=== PATIENT | female | born 1985 | race Caucasian/White ===

== ENCOUNTER 2020-04-07 17:22 | Outpatient (REF) | payer OTHER, SELFPAY | END 2020-04-07 17:23 | disposition home or self-care (01) | LOC: HO.LAB 17:22 | PROVIDERS: Visit Provider Internal Medicine | DX: Z20.828 Contact with and (suspected) exposure to other viral communicable diseases (principal) | CPT/HCPCS: 87635 ==

== ENCOUNTER 2020-05-06 16:19 | Outpatient (REF) | payer OTHER, SELFPAY | END 2020-05-06 16:20 | disposition home or self-care (01) | LOC: HO.LAB 16:19 | PROVIDERS: PCP Physician Assistant; Visit Provider Internal Medicine | DX: Z20.828 Contact with and (suspected) exposure to other viral communicable diseases (principal) | CPT/HCPCS: C9803; U0003 ==

== ENCOUNTER 2020-11-12 07:27 | Outpatient (REF) | payer OTHER, SELFPAY ==
[2020-11-12 07:59] LABS: Hematocrit 37.6 % (37-47); Mean Corpuscular HGB Conc 31.9 g/dl (31.0-35.0); Mean Corpuscular Hemoglobin 28.2 pg (27.0-33.0); Mean Corpuscular Volume 88.3 fL (80-98); Mean Platelet Volume 9.3 fL (9.4-12.3); Platelet Count 306 X10*3/uL (160-400); Red Blood Count 4.26 X10*6/uL (4.20-5.50); Red Cell Distribution Width 13.3 % (11.0-16.0); White Blood Count 8.2 X10*3/uL (4.8-10.8)
[2020-11-12 08:26] LABS: Estimated Average Glucose 108 mg/dL; Hemoglobin A1c % 5.4 %
[2020-11-12 08:30] LABS: Alanine Aminotransferase 12 U/L (0-31); Alkaline Phosphatase 60 U/L (39-117); Anion Gap 9 (12-20); Aspartate Amino Transferase 16 U/L (5-31); Bilirubin Total 0.5 mg/dL (0.0-1.0); Blood Urea Nitrogen 19 mg/dL (9-16); Calcium 8.9 mg/dL (8.4-10.2); Carbon Dioxide 25 mmol/L (22-29); Chloride 109 mmol/L (96-108); Estimated Glomerular Filt Rate > 60; Glucose Fasting 93 mg/dL (60-99); Potassium 4.2 mmol/L (3.3-5.1); Sodium 139 mmol/L (135-145); Total Protein 6.9 g/dL (6.5-8.0)
[2020-11-12 08:35] LABS: TSH reflex Free T4 0.78 uIU/mL (0.32-4.0)
== END 2020-11-12 07:28 | disposition home or self-care (01) ==
LOC: HO.LAB 07:27
PROVIDERS: PCP Physician Assistant; Visit Provider Physician Assistant
DX: Z13.29 Encounter for screening for other suspected endocrine disorder (principal); I10 Essential (primary) hypertension
CPT/HCPCS: 36415; 80053; 83036; 84443; 85027

== ENCOUNTER 2021-02-06 13:47 | Emergency (ER) | payer BC, MEDICAID, SELFPAY ==
--- NOTE | ~2021-02-06 | CT_ITS ---
EXAMINATION: CT HEAD WITHOUT CONTRAST CLINICAL INFORMATION: Headache. COMPARISON: None. TECHNIQUE: Contiguous axial imaging was performed from the skull base to vertex without intravenous administration of contrast. Coronal and sagittal reformatted images are performed at the CT scanner. [This CT examination was performed using dose optimization techniques as appropriate, variously including the following: *Automated exposure control *Adjustment of mA and/or kV according to patient size (this includes techniques or standardized protocols for targeted exams where dose is matched to indication/reason for exam; i.e. extremities or head) *Use of iterative reconstruction technique] DLP: 679 mGy-cm. FINDINGS: There is no evidence of acute intracranial hemorrhage or territorial infarction. No abnormal mass-effect or midline shift is seen. Galeano to white matter differentiation is well preserved. No extra-axial fluid collections are identified. The ventricles are normal in size. There is no abnormal attenuation within the brain parenchyma. There is no osseous abnormality. The mastoid air cells and visualized portions of the paranasal sinuses are well-aerated. CT/CT head/brain wo con IMPRESSION: No acute intracranial pathology.
[2021-02-06 13:58] VITALS: BP 111/65; PULSE 83; RESP 18; TEMP 36.8; O2SAT 99; BMI 21.8
--- NOTE | 2021-02-06 16:12 | ED.GENADULT ---
HPI - General Adult General Chief complaint: Dizziness Stated complaint: dizzy Time Seen by Provider: 02/06/21 16:11 Source: patient Mode of arrival: ambulatory Limitations: no limitations History of Present Illness HPI narrative: 35 years old female came in for evaluation of headache that started few weeks ago. Patient presented with headache and dizziness that is intermittent for the past 3-4 weeks, pain was described as intermittent, severe 8/10, nothing triggers a headache, no relieving factor, had history of intermittent headaches in the past, no family history of ruptured aneurysm or intracranial bleed or brain tumor or sudden in the family. No other associated symptoms in particular no nausea, no vomiting, no neck stiffness, no photophobia. Related Data Home Medications Medication Instructions Recorded Confirmed No Known Home Meds 11/02/20 11/02/20 Allergies Allergy/AdvReac Type Severity Reaction Status Date / Time acetaminophen [From Midol] Allergy Severe con not Verified 11/02/20 13:16 breath pamabrom [From Midol] Allergy Severe con not Verified 11/02/20 13:16 breath Review of Systems Review of Systems: All other systems are reviewed and are negative Constitutional: Reports as per HPI and Reports no additional constitutional complaints Eyes: Reports as per HPI and Reports no additional eye complaints Reports system reviewed and no additional complaints, except as documented Cardiovascular: Reports as per HPI and Reports no additional cardiovascular complaints Respiratory: Reports as per HPI and Reports no additional respiratory complaints Gastrointestinal: Reports as per HPI and Reports no additional gastrointestinal complaints Genitourinary: Reports no additional female genitourinary complaints Musculoskeletal: Reports no additional musculoskeletal complaints Skin/Breast: Reports system reviewed and no additional complaints, except as docu Psychiatric: Reports no additional psychiatric complaints Endocrine: Reports no additional endocrine complaints Hematologic/Lymphatic: Reports no additional hematologic/lymphatic complaints Allergic/Immunologic: Reports no additional allergic/immunologic complaints Reports system reviewed and no additional complaints, except as documented and Reports Abnormal speech present. 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 Physical Exam Vital Signs: Vital Signs: Last Vital Signs Temp 98.3 F 02/06/21 13:58 Pulse 83 02/06/21 13:58 Resp 18 02/06/21 13:58 BP 111/65 02/06/21 13:58 Pulse Ox 99 02/06/21 13:58 Body Mass Index 21.8 Vital signs have been reviewed as appeared to be correct. Blood pressure normal. Heart rate normal. Respiration rate normal. Temperature normal. Oxygen saturation normal. Appearance: Alert. Oriented X3. No acute distress. Head: Normal external exam. Normocephalic. Atraumatic. No Howard signs noted. No raccoon eyes noted Eyes: PERRLA. EOMI. Conjunctiva and sclera normal. Eyelids normal. ENT: TM's Normal. Pharynx normal. Uvula midline. Moist mucous membranes. No trismus noted. No drooling noted. No muffled voice noted. Neck: Normal inspection. Neck supple. FROM. No adenopathy. Thyroid Normal. No meningeal signs. No neck mass noted. CVS: Normal heart rate and rhythm. Heart sound normal. No murmurs noted. Pulses normal throughout. Respiratory: No respiratory distress. Painless inspiration. Breath sounds normal. No wheezes/rales/rhonchi noted. Chest nontender. No accessory muscle usage noted or decreased air movement noted. Abdomen: Soft and nontender. Bowel sounds normal in all 4 quadrants. No distention noted. No organomegaly noted. No visible injury noted. Back: No CVA tenderness. Full range of motion noted. Skin: Skin warm and dry. Normal skin color. Normal skin turgor. No rashes/lesions/lacerations noted. Extremities: No lower extremity edema. Extremities exhibit normal range of motion. Extremities nontender. Neuro: Oriented X 3. Cranial nerve exam: II-XII are grossly intact No motor deficit. No sensory deficit. Reflexes normal. Course Course Course Narrative: Assessment and plan. 35-year-old female came in with headache for the past 3-4 weeks this intermittent. Patient has normal CT, normal neuro exam, headache improved with ibuprofen in the emergency department. Will discharge to follow-up with neurology/PCP. Medical Decision Making Imaging Data CT scan - head: Radiologist's impression: No acute intracranial pathology. Discharge Plan Discharge Clinical Impression: Headache Qualifiers: Headache chronicity pattern: episodic headache Intractability: not intractable Patient Disposition: Home, Self-Care Instructions: Acute Headache (ED) Prescriptions: No Action No Known Home Meds RF: 0 Referrals: Michael Montgomery PA-C [Primary Care Provider] - 2 days Misa Hawkins MD [Physician] - 2 days Stand Alone Forms: Work/School Release
[2021-02-06] MEDS: Ibuprofen 600 MG TABLET PO (16:23)
== END 2021-02-06 19:00 | disposition home or self-care (01) ==
PROVIDERS: Emergency Provider Emergency Medicine; PCP Physician Assistant
DX: R51.9 Headache, unspecified (principal); R42 Dizziness and giddiness
CPT/HCPCS: 70450; 99284

== ENCOUNTER → 2021-08-09 09:32 | Outpatient (REF) | payer BC, SELFPAY ==
--- NOTE | 2021-08-09 09:39 | ECG_ITS ---
Test Reason : cp Blood Pressure : / mmHG Vent. Rate : 071 BPM Atrial Rate : 071 BPM P-R Int : 138 ms QRS Dur : 086 ms QT Int : 390 ms P-R-T Axes : 046 060 039 degrees QTc Int : 423 ms Normal sinus rhythm with sinus arrhythmia Normal ECG No previous ECGs available Referred By: Agueda Vazquez Electronically Signed By:DILEEP SANCHEZ MD
== END ==
LOC: HO.CARD 09:32
PROVIDERS: PCP Physician Assistant; Visit Provider Nurse Practitioner Family
DX: R07.9 Chest pain, unspecified (principal)
CPT/HCPCS: 93005

== ENCOUNTER 2021-09-21 14:18 | Outpatient (REF) | payer BC, SELFPAY ==
--- NOTE | ~2021-09-21 | MM_ITS ---
EXAMINATION: MM DIAGNOSTIC DIGITAL BREAST TOMOSYNTHESIS, BILATERAL US DIAGNOSTIC ULTRASOUND BREAST, RIGHT CLINICAL INFORMATION: 36-year-old with pea-sized palpable nodularity high right axilla near upper arm. No prior breast imaging. No known family history breast cancer. The lifetime risk of breast cancer based on the Tyrer-Cuzick Model is 7%. COMPARISON: None (current study represents initial baseline exam). TECHNIQUE: Digital breast tomosynthesis is performed in both the craniocaudal and mediolateral oblique views along with computer-aided detection (CAD). Synthesized 2D images are generated from the tomosynthesis. Additional high right MLO view is obtained. Ultrasound right axilla is targeted to the area of clinical concern using grayscale imaging and color Doppler without and with harmonics. Patient is able to point to the area at time of imaging. FINDINGS: The breasts are heterogeneously dense, which may obscure small masses (ACR BI-RADS breast composition Category c). Breast tissue composition borders on extremely dense. There is no significant mass or architectural abnormality or abnormal calcifications. No skin thickening or coarsening of the Gerardo's ligaments. No adenopathy. Ultrasound targeted to the site of clinical concern high right axilla near upper arm demonstrates no cystic or solid mass. There is no skin thickening or edema tracking in soft tissue planes. No adenopathy. Results are discussed with the patient at time of visit. MM/MM tomosynthesis screening BI IMPRESSION: -No mammographic evidence of malignancy. -Unremarkable targeted ultrasound right axilla. ASSESSMENT: BI-RADS 1: Negative RECOMMENDATION: 1. Patient should be managed based on the clinical impression. If clinically indicated, further evaluation may be considered with surgical consult or MRI. 2. Otherwise, routine annual screening mammography, beginning age 40, or earlier as clinical risk factors warrant. This patient's information was entered into a reminder system with a target due date for their next mammogram.
== END 2021-09-21 14:19 | disposition home or self-care (01) ==
LOC: HO.MAMMO 14:18
PROVIDERS: PCP Physician Assistant; Visit Provider Physician Assistant
DX: Z12.31 Encounter for screening mammogram for malignant neoplasm of breast (principal); N63.31 Unspecified lump in axillary tail of the right breast
CPT/HCPCS: 76642; 77063; 77067

== ENCOUNTER 2021-10-23 08:08 | Outpatient (REF) | payer BC, SELFPAY ==
[2021-10-23 08:39] LABS: Hematocrit 37.7 % (37.0-47.0); Hemoglobin 11.7 g/dl (12.0-16.0); Mean Corpuscular Hemoglobin 27.3 pg (27.0-33.0); Mean Corpuscular Volume 88.1 fL (80.0-98.0); Platelet Count 376 X10*3/uL (160-400); Red Blood Count 4.28 X10*6/uL (4.20-5.50); Red Cell Distribution Width 13.2 % (11.0-16.0); White Blood Count 6.4 X10*3/uL (4.8-10.8)
[2021-10-23 09:02] LABS: Alanine Aminotransferase 11 U/L (0-31); Albumin Level 4.1 g/dL (3.5-5.0); Alkaline Phosphatase 57 U/L (39-117); Anion Gap 11 (12-20); Aspartate Amino Transferase 16 U/L (5-31); Bilirubin Total 0.6 mg/dL (0.0-1.0); Blood Urea Nitrogen 11 mg/dL (9-16); Calcium 9.1 mg/dL (8.4-10.2); Carbon Dioxide 24 mmol/L (22-29); Chloride 108 mmol/L (96-108); Estimated Glomerular Filt Rate > 60; Glucose Fasting 104 mg/dL (60-99); Potassium 4.8 mmol/L (3.3-5.1); Sodium 138 mmol/L (135-145)
[2021-10-23 09:21] LABS: TSH reflex Free T4 1.25 uIU/mL (0.32-4.0)
== END 2021-10-23 08:09 | disposition home or self-care (01) ==
LOC: HO.LAB 08:08
PROVIDERS: PCP Physician Assistant; Visit Provider Physician Assistant
DX: Z13.29 Encounter for screening for other suspected endocrine disorder (principal)
CPT/HCPCS: 36415; 80053; 84443; 85027

== ENCOUNTER 2021-10-27 13:39 | Outpatient (REF) | payer BC, SELFPAY ==
[2021-10-30 16:06] LABS: Lutenizing Hormone 2.4 mIU/mL
[2021-11-05 19:57] LABS: Estrogen 203.4 pg/mL
== END 2021-10-27 13:40 | disposition home or self-care (01) ==
LOC: HO.LAB 13:39
PROVIDERS: PCP Physician Assistant; Visit Provider Physician Assistant
DX: N92.0 Excessive and frequent menstruation with regular cycle (principal)
CPT/HCPCS: 36415; 82672; 83001; 83002

== ENCOUNTER 2021-10-31 09:10 | Outpatient (REF) | payer BC, SELFPAY ==
[2021-10-31 10:19] LABS: Hematocrit 37.4 % (37.0-47.0); Hemoglobin 11.7 g/dl (12.0-16.0); Mean Corpuscular HGB Conc 31.3 g/dl (31.0-35.0); Mean Corpuscular Hemoglobin 27.3 pg (27.0-33.0); Mean Corpuscular Volume 87.4 fL (80.0-98.0); Mean Platelet Volume 9.3 fL (9.4-12.3); Platelet Count 394 X10*3/uL (160-400); Red Blood Count 4.28 X10*6/uL (4.20-5.50); Red Cell Distribution Width 12.9 % (11.0-16.0); White Blood Count 5.8 X10*3/uL (4.8-10.8)
[2021-10-31 10:59] LABS: HCG Quantitative < 2 mIU/mL; TSH reflex Free T4 0.84 uIU/mL (0.32-4.0)
[2021-10-31 18:15] LABS: CT PCR NOT DETECTED (Not Detect.); NG PCR NOT DETECTED (Not Detect.)
[2021-11-03 01:37] LABS: HPV mRNA E6/E7 rflx Not Detected (Not Detected)
== END 2021-10-31 09:11 | disposition home or self-care (01) ==
LOC: HO.LAB 09:10
PROVIDERS: PCP Physician Assistant; Visit Provider Obstetrics & Gynecology
DX: Z01.411 Encounter for gynecological examination (general) (routine) with abnormal findings (principal); Z11.51 Encounter for screening for human papillomavirus (HPV); N93.9 Abnormal uterine and vaginal bleeding, unspecified
CPT/HCPCS: 36415; 84443; 84702; 85027; 87491; 87591; 87624; 88142

== ENCOUNTER 2021-11-08 12:37 | Outpatient (REF) | payer BC, SELFPAY ==
--- NOTE | ~2021-11-08 | US_ITS ---
EXAMINATION: US PELVIS CLINICAL INFORMATION: Abnormal uterine and vaginal bleeding COMPARISON: None TECHNIQUE: Ultrasound of the pelvis is performed using both transabdominal and transvaginal transducers along with Doppler. Transvaginal imaging is performed due to inadequate visualization transabdominally. FINDINGS: The uterus is anteverted and measures 11.2 x 5.3 x 5.6 cm in dimension. There is a 3.4 x 4.4 x 4.6 cm hypoechoic lesion in the anterior uterine fundus suggestive of a fibroid. No other focal uterine lesion is seen. Endometrial thickness is normal measuring 1 cm. The ovaries are normal. The right ovary measures 3.5 x 2.2 x 2.6 cm. The left ovary measures 3.4 x 2.1 x 1.4 cm. There is no fluid in the pelvis. There are prominent pelvic vessels questionable for pelvic congestion. US/US pelvic and transvaginal IMPRESSION: 3.4 x 4.4 x 4.6 cm fundal uterine fibroid. Prominent pelvic vessels are questionable for pelvic congestion.
== END 2021-11-08 12:38 | disposition home or self-care (01) ==
LOC: HO.HMGCX 12:37
PROVIDERS: Visit Provider Obstetrics & Gynecology
DX: N93.9 Abnormal uterine and vaginal bleeding, unspecified (principal)
CPT/HCPCS: 76830; 76856

== ENCOUNTER → 2022-01-02 09:34 | Outpatient (BNVA) | payer BC, SELFPAY | PROVIDERS: PCP Physician Assistant; Visit Provider Obstetrics & Gynecology | DX: Z30.430 Encounter for insertion of intrauterine contraceptive device (principal) | CPT/HCPCS: 58300; J7298 ==

== ENCOUNTER 2022-05-01 10:38 | Outpatient (REF) | payer BC, SELFPAY ==
[2022-05-01 13:05] LABS: Influenza A PCR NEGATIVE (Negative); Influenza B PCR NEGATIVE (Negative); Resp Syncy Virus RNA Qual PCR NEGATIVE (Negative); SARS COV2 PCR INHOUSE NEGATIVE (Negative)
== END 2022-05-01 10:39 | disposition home or self-care (01) ==
LOC: HO.LAB 10:38
PROVIDERS: Visit Provider Physician Assistant
DX: Z20.822 Contact with and (suspected) exposure to COVID-19 (principal); J32.9 Chronic sinusitis, unspecified
CPT/HCPCS: 0241U

== ENCOUNTER 2022-05-23 09:18 | Outpatient (REF) | payer BC, SELFPAY ==
[2022-05-23 14:38] LABS: CT PCR NOT DETECTED (Not Detect.); NG PCR NOT DETECTED (Not Detect.)
[2022-05-24 13:58] LABS: BV Int Neg Control Negative (Negative); BV Int Pos Control Positive (Positive)
== END 2022-05-23 09:19 | disposition home or self-care (01) ==
LOC: HO.LNP 09:18
PROVIDERS: Visit Provider Obstetrics & Gynecology
DX: N89.8 Other specified noninflammatory disorders of vagina (principal)
CPT/HCPCS: 87480; 87491; 87510; 87591; 87660

== ENCOUNTER 2022-07-24 13:55 | Outpatient (REF) | payer BC, SELFPAY ==
[2022-07-25 09:46] LABS: BV Int Neg Control Negative (Negative); BV Int Pos Control Positive (Positive)
== END 2022-07-24 13:56 | disposition home or self-care (01) ==
LOC: HO.LNP 13:55
PROVIDERS: Visit Provider Obstetrics & Gynecology
DX: N76.0 Acute vaginitis (principal); B96.89 Other specified bacterial agents as the cause of diseases classified elsewhere
CPT/HCPCS: 87480; 87510; 87660

== ENCOUNTER 2022-07-24 14:52 | Outpatient (REF) | payer BC, SELFPAY ==
[2022-07-24 18:30] LABS: CT PCR NOT DETECTED (Not Detect.); NG PCR NOT DETECTED (Not Detect.)
[2022-07-25 04:47] LABS: Syphilis Screen Nonreactive (Nonreactive)
[2022-07-25 05:24] LABS: HBsAGNum1 0.28 S/CO (0.00-0.99); HIV AB/AG Nonreactive (Nonreactive); HIV Num 1 0.07 S/CO (0.00-0.99); Hepatitis B Surface Antigen Negative (Negative); ~HepC Num1 0.13 S/CO (0.00-0.79); ~Hepatitis C Antibody Nonreactive (Nonreactive)
== END 2022-07-24 14:53 | disposition home or self-care (01) ==
LOC: HO.LAB 14:52
PROVIDERS: PCP Physician Assistant; Visit Provider Obstetrics & Gynecology
DX: N76.0 Acute vaginitis (principal); B96.89 Other specified bacterial agents as the cause of diseases classified elsewhere
CPT/HCPCS: 0353U; 36415; 86780; 86803; 87340; 87389

== ENCOUNTER 2022-10-22 09:46 | Outpatient (REF) | payer BC, SELFPAY | END 2022-10-22 09:47 | disposition home or self-care (01) | LOC: HO.LNP 09:46 | PROVIDERS: PCP Physician Assistant; Visit Provider Obstetrics & Gynecology | DX: Z30.432 Encounter for removal of intrauterine contraceptive device (principal); N93.9 Abnormal uterine and vaginal bleeding, unspecified | CPT/HCPCS: 58100; 58301; 81025; 88305 ==

== ENCOUNTER 2022-10-22 10:27 | Outpatient (REF) | payer BC, SELFPAY ==
[2022-10-22 12:27] LABS: Hematocrit 37.8 % (37.0-47.0); Hemoglobin 11.8 g/dl (12.0-16.0); Mean Corpuscular HGB Conc 31.2 g/dl (31.0-35.0); Mean Corpuscular Hemoglobin 27.7 pg (27.0-33.0); Mean Corpuscular Volume 88.7 fL (80.0-98.0); Mean Platelet Volume 9.9 fL (9.4-12.3); Platelet Count 415 X10*3/uL (160-400); Red Blood Count 4.26 X10*6/uL (4.20-5.50); Red Cell Distribution Width 12.5 % (11.0-16.0); White Blood Count 8.3 X10*3/uL (4.8-10.8)
[2022-10-22 13:42] LABS: HCG Quantitative < 2 mIU/mL; TSH reflex Free T4 1.42 uIU/mL (0.32-4.0)
[2022-10-22 14:30] LABS: CT PCR NOT DETECTED (Not Detect.); NG PCR NOT DETECTED (Not Detect.)
[2022-10-24 05:47] LABS: Prolactin 20.7 ng/mL
== END 2022-10-22 10:28 | disposition home or self-care (01) ==
LOC: HO.LAB 10:27
PROVIDERS: PCP Physician Assistant; Visit Provider Obstetrics & Gynecology
DX: Z30.432 Encounter for removal of intrauterine contraceptive device (principal); N93.9 Abnormal uterine and vaginal bleeding, unspecified; Z20.2 Contact with and (suspected) exposure to infections with a predominantly sexual mode of transmission
CPT/HCPCS: 0353U; 84146; 84443; 84702; 85027

== ENCOUNTER 2022-11-01 14:02 | Outpatient (REF) | payer BC, SELFPAY ==
--- NOTE | ~2022-11-01 | US_ITS ---
EXAMINATION: US PELVIS COMPLETE CLINICAL INFORMATION: Abnormal bleeding COMPARISON: Pelvic ultrasound 11/08/2021 TECHNIQUE: Transabdominal and transvaginal imaging was performed. FINDINGS: The uterus large measuring 12.2 x 6.1 x 5.8 cm. A regular homogeneous endometrium is identified measuring 0.5 cm. 2 new subcentimeter intramural uterine myomas in the anterior and posterior body measuring up to 0.9 cm. A 4.6 cm subserosal myoma in the fundus is unchanged in maximal diameter previously 4.6 cm. Both ovaries are of normal size and echogenicity. The right measures 3.1 x 2.4 x 2.6 cm for a volume of 9.8 mL. The left measures 1.6 x 1.6 x 1.7 cm for a volume of 2.2 mL. There is trace physiologic volume simple pelvic free fluid. US/US pelvic and transvaginal IMPRESSION: 1. Two new subcentimeter intramural myomas in the anterior and posterior body measuring up to 0.9 cm. 2. A 4.6 cm subserosal myoma in the fundus is unchanged in maximal diameter. 3. Unremarkable sonographic appearance of the ovaries.
== END 2022-11-01 14:03 | disposition home or self-care (01) ==
LOC: HO.US 14:02
PROVIDERS: PCP Physician Assistant; Visit Provider Obstetrics & Gynecology
DX: N93.9 Abnormal uterine and vaginal bleeding, unspecified (principal)
CPT/HCPCS: 76830; 76856

== ENCOUNTER 2022-11-15 09:19 | Outpatient (REF) | payer BC, SELFPAY ==
[2022-11-15 10:29] LABS: Hematocrit 36.7 % (37.0-47.0); Hemoglobin 11.6 g/dl (12.0-16.0); Mean Corpuscular HGB Conc 31.6 g/dl (31.0-35.0); Mean Corpuscular Hemoglobin 28.2 pg (27.0-33.0); Mean Corpuscular Volume 89.3 fL (80.0-98.0); Mean Platelet Volume 9.7 fL (9.4-12.3); Platelet Count 405 X10*3/uL (160-400); Red Blood Count 4.11 X10*6/uL (4.20-5.50); Red Cell Distribution Width 12.8 % (11.0-16.0); White Blood Count 7.8 X10*3/uL (4.8-10.8)
[2022-11-15 11:17] LABS: Alanine Aminotransferase 13 U/L (0-31); Albumin Level 4.2 g/dL (3.5-5.0); Alkaline Phosphatase 65 U/L (39-117); Anion Gap 12 (12-20); Aspartate Amino Transferase 19 U/L (5-31); Bilirubin Total 0.6 mg/dL (0.0-1.0); Blood Urea Nitrogen 12 mg/dL (9-16); Calcium 9.4 mg/dL (8.4-10.2); Carbon Dioxide 26 mmol/L (22-29); Chloride 106 mmol/L (96-108); Cholesterol 198 mg/dL; Estimated Glomerular Filt Rate > 60; Glucose Fasting 95 mg/dL (60-99); HDL Cholesterol 50 mg/dL; LDL Cholesterol Calculated 130 mg/dl; Potassium 4.2 mmol/L (3.3-5.1); Sodium 140 mmol/L (135-145); Total Protein 7.2 g/dL (6.5-8.0); Triglycerides 92 mg/dL
== END 2022-11-15 09:20 | disposition home or self-care (01) ==
LOC: HO.LAB 09:19
PROVIDERS: PCP Physician Assistant; Visit Provider Physician Assistant
DX: Z13.1 Encounter for screening for diabetes mellitus (principal); N93.9 Abnormal uterine and vaginal bleeding, unspecified; D25.9 Leiomyoma of uterus, unspecified; N94.89 Other specified conditions associated with female genital organs and menstrual cycle; N18.30 Chronic kidney disease, stage 3 unspecified; Z82.49 Family history of ischemic heart disease and other diseases of the circulatory system
CPT/HCPCS: 36415; 80053; 80061; 85027

== ENCOUNTER 2023-03-11 14:42 | Outpatient (AMB) | payer BC, SELFPAY ==
--- NOTE | 2023-03-11 14:42 | MHC.OFFVIS ---
Intake Vital Signs 03/11/23 14:44 Height 5 ft 4 in Weight 147 lb 11.355 oz BMI 25.4 BP 118/76 Intake Visit Reasons: Follow Up Medication/DO NOT RS Community Nurse Required: No Information Interpreted: non-clinical & clinical Accompanied by: Self / Same As Patient Allergies acetaminophen [From Midol] Allergy (Severe, Verified 03/11/23 14:45) con not breath pamabrom [From Midol] Allergy (Severe, Verified 03/11/23 14:45) con not breath Is last menstrual period known: Yes Last menstrual period: 03/11/23 HPI HPI Comments History of Present Illness Details The patient is presenting for follow-up for Provera. The patient did not take Provera is having regular heavy menstrual cycles associated passage of blood clots and pelvic cramping. The following workup was done.: H&H= 11.6/36.7 TSH, prolactin, hCG, GC and chlamydia were negative. Endometrial biopsy pathology showed no evidence of hyperplasia and/or malignancy. Co testing was done was negative. Pelvic ultrasound showed the following: The uterus large measuring 12.2 x 6.1 x 5.8 cm. A regular homogeneous endometrium is identified measuring 0.5 cm. 2 new subcentimeter intramural uterine myomas in the anterior and posterior body measuring up to 0.9 cm. A 4.6 cm subserosal myoma in the fundus is unchanged in maximal diameter previously 4.6 cm. Both ovaries are of normal size and echogenicity. The right measures 3.1 x 2.4 x 2.6 cm for a volume of 9.8 mL. The left measures 1.6 x 1.6 x 1.7 cm for a volume of 2.2 mL. There is trace physiologic volume simple pelvic free fluid. Additional findings should include: Prominent adnexal vessels, recommend correlation with any symptoms of pelvic venous congestion syndrome. [facility] Medical History DIANA III (cervical intraepithelial neoplasia grade III) with severe dysplasia No known health problems No known health problems Surgical History History of facial surgery Hx of appendectomy Tubal ligation status Family History Mother Arthritis Tendinitis Migraine Valvular heart disease Father Schizophrenia Heart attack, Onset Age: 55 Paternal Aunt Heart attack Paternal Grandmother Ovarian cancer Other Mental health disorder Social History Housing: House Alcohol intake: current Alcohol intake frequency: holidays/special occasions only Patient Tobacco Use Status: Former Tobacco user Quit Date: 2016 Tobacco use type: Smokeless Tobacco e-Cigarette/Vaping Use: Currently Using Second Hand Smoke Exposure: Yes service: No Current occupational status: employed 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 Cognitive needs: No Hearing needs: No Vision needs: Yes (glasses) Female Reproductive History Menstrual Age of Menarche: 15 Date of last menstrual period: 03/11/23 Review of Systems Const All systems reviewed & are unremarkable except as noted in HPI and below Reports as per HPI and Reports no additional complaints GI Reports no additional complaints Reports no additional complaints Physical Exam Vital Signs: Last Vital Signs BP 118/76 03/11/23 14:44 BMI result Body Mass Index 25.4 Assessment & Plan Assessment & Plan (1) Abnormal uterine bleeding (AUB): Code(s): N93.9 - Abnormal uterine and vaginal bleeding, unspecified Plan: Discussed with the patient the results of the work up done and options of treatment including Lysteda, BCP's, Mirena IUD, endometrial ablation and hysterectomy. All pros, cons, risks and benefits if each option was discussed with the patient and the patient decided to go ahead with Lysteda , so a more detailed discussion re: Lysteda including mechanism of action, benefits, risks including but not limited to thrombosis and strokes, Instructions were given on how to use, 2 tablets p.o. 3 times a day day 1 up to 3-5 days of menses and to schedule a 3 months follow-up appointment. The patient verbalized understanding and agreed with the plan. Medications: New tranexamic acid 1,300 mg (2 x 650 mg) PO TID 5 days 30 tabs 2RF Coding Level of Care Code Est Pt Level 3 (31610) Diagnoses Abnormal uterine bleeding (AUB) N93.9
[2023-03-11 14:44] VITALS: BP 118/76; BMI 25.4
== END 2023-03-11 15:42 | disposition home or self-care (01) ==
PROVIDERS: Visit Provider Obstetrics & Gynecology
DX: N93.9 Abnormal uterine and vaginal bleeding, unspecified (principal)
CPT/HCPCS: 99213

== ENCOUNTER → 2023-03-11 14:42 | Outpatient (BNVA) | payer BC, SELFPAY | PROVIDERS: Visit Provider Obstetrics & Gynecology ==

== ENCOUNTER 2023-04-29 15:21 | Outpatient (AMB) | payer BC, SELFPAY ==
--- NOTE | 2023-04-29 15:25 | A.OFFPC_ITS ---
Vital Signs 3 04/29/23 15:26 Height 5 ft 4 in Weight 146 lb 6 oz BMI 25.1 BP 120/70 Blood Pressure Location Lt brachial Position Sitting Pulse 90 Pulse Source Pulse Oximeter Pulse Oximetry (%) 97 Oxygen Delivery Method Room Air Intake Visit Reasons: left knee pain Intake Note: Patient is here today for left knee pain Lap Grinder Required: No Train Caller: Not Required per policy Accompanied by: Self / Same As Patient Allergies acetaminophen [From Midol] Allergy (Severe, Verified 04/29/23 15:32) con not breath pamabrom [From Midol] Allergy (Severe, Verified 04/29/23 15:32) con not breath Medication List - Last Reconciled 04/29/23 by Michael Montgomery PA-C cetirizine 10 mg PO DAILY 60 days fluticasone propionate 50 mcg/actuation (Flonase Allergy Relief) 1 spray intranasal BID 30 days sennosides (Senna Lax) 8.6 mg PO BEDTIME PRN 30 days tranexamic acid 1,300 mg (2 x 650 mg) PO TID 5 days Tobacco use date assessed: 04/29/23 Dental Screening Dental Screen Date: 04/29/23 Did you have a dental visit in the last 12 months?: Yes Did you have a dental problem in the last 6 months where you did not have access to dental care?: No Was dental information given to patient?: Patient has dentist HPI left knee pain 2 HPI0 Details Patient is a 38-year-old here today for a problem visit. She reports having left lateral knee pain over the last few days. 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 She reports the pain in her lateral left knee is localized and only bothers her when going up and down stairs. She is able to exercise and workout without any pain in her left knee. She denies any notable injury to the lateral aspect of her left knee. Has been wearing compression knee brace which has been helpful. [facility]LY [facility], [facility] Medical History DIANA III (cervical intraepithelial neoplasia grade III) with severe dysplasia No known health problems No known health problems Surgical History History of facial surgery Hx of appendectomy Tubal ligation status Family History Mother Arthritis Tendinitis Migraine Valvular heart disease Father Schizophrenia Heart attack, Onset Age: 55 Paternal Aunt Heart attack Paternal Grandmother Ovarian cancer Other Mental health disorder Social History Housing: House Alcohol intake: current Alcohol intake frequency: holidays/special occasions only Patient Tobacco Use Status: Former Tobacco user Quit Date: 2016 Tobacco use type: Smokeless Tobacco e-Cigarette/Vaping Use: Currently Using Second Hand Smoke Exposure: Yes service: No Current occupational status: employed 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 Cognitive needs: No Hearing needs: No Vision needs: Yes (glasses) Female Reproductive History Menstrual Age of Menarche: 15 Questionnaire Thrive Questionnaire Date Thrive assessed: 11/14/22 AARON-7 AMB Questionnaire AARON-7 Date AARON - 7 assessed: 11/14/22 Source: Developed by Drs. Lauro Gardner, Maura Canales, Josse Zelaya and colleagues, with an educational karin from [employer]. Review of Systems Const Denies headache(s) Eyes Denies loss of vision ENT Denies vertigo, Denies dizziness, Denies headache(s) and Denies sore throat Card Denies chest pain, Denies leg edema and Denies lightheadedness Resp Denies cough, Denies hemoptysis and Denies wheezing GI Denies abdominal pain, Denies melena, Denies constipation, Denies diarrhea and Denies vomiting Denies urinary frequency, Denies dysuria and Denies urinary urgency Musc Denies arthralgias, Denies joint swelling, Denies numbness and Denies tingling Neuro Denies Abnormal speech present, Denies behavioral changes, Denies vertigo, Denies dizziness, Denies headache(s), Denies loss of vision, Denies memory loss, Denies numbness and Denies tingling Psych Denies anxiety, Denies behavioral changes, Denies depression, Denies memory loss and Denies panic attacks Magen/Lymph Denies easy bleeding and Denies easy bruising Aller/Immun Denies wheezing Physical exam (Primary Care) Vital Signs: Last Vital Signs Pulse 90 04/29/23 15:26 BP 120/70 04/29/23 15:26 Pulse Ox 97 04/29/23 15:26 Oxygen Delivery Method Room Air 04/29/23 15:26 BMI result Body Mass Index 25.1 Tobacco/Smoking Status: Tobacco use Status Tobacco use date assessed 04/29/23 04/29/23 15:30 Patient Tobacco Use Status Former Tobacco user 04/29/23 15:30 Tobacco use type Smokeless Tobacco 04/29/23 15:30 e-Cigarette/Vaping Use Currently Using 04/29/23 15:30 Thrive Assessment: Date of Thrive Assessment Date Thrive assessed 11/14/22 04/29/23 15:30 Const General: healthy appearing, no acute distress, alert and awake Nutritional Appearance: well nourished Orientation/consciousness: oriented to person, oriented to place and oriented to time HENMT Ears: TM's normal bilaterally General nose exam: Normal nasal mucous membranes and turbinates present Eyes Conjunctivae: conjunctivae normal Sclerae: sclerae normal Pupils: Equal, round and reactive pupils present Neck Neck: Yes no lymphadenopathy and Yes no JVD Thyroid: Thyroid normal Carotids: no bruits Resp Effort & Inspection: normal respiratory effort and not tachypneic Auscultation: no crackles, no rales, no rhonchi and no wheezes Cardio Rate: regular rate Rhythm: regular rhythm Heart sounds: no murmurs and normal S1 and S2 GI Palpation (GI): Soft to palpation, nontender, no hepatomegaly and no splenomegaly Auscultation: normal bowel sounds Skin General skin exam: no rashes or lesions noted and dry skin Neuro General: oriented to person, oriented to place and oriented to time Cranial nerves: Yes Equal, round and reactive pupils present Speech: No Abnormal speech present Gait exam (Neuro): Normal gait present Motor exam (neuro): no tremor noted Extrem Right upper extremity: full ROM Left upper extremity: full ROM Right lower extremity: full ROM; no edema Left lower extremity: full ROM; no edema Knee images: 2 1. PAIN LOCATED IN THIS AREA DURING CERTAIN MOVEMENTS OF THE LEFT KNEE. Psych Mental Status: mental status grossly normal Speech and movement: Normal speech and movement present Affect: normal affect Attitude: cooperative Thought process: Normal thought process present Assessment and Plan Assessment & Plan (1) Left knee pain: Code(s): M25.562 - Pain in left knee Qualifiers: Chronicity: acute Qualified Code(s): M25.562 - Pain in left knee Plan: Patient with acute lateral left knee pain most consistent with an LCL sprain. 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 Advised on conservative treatment with compression, use of NSAID and cool compress. Orders: Orders 2 XR knee LT 3V 04/29/23 M25.562 - Pain in left knee Medications: New 2 diclofenac sodium 50 mg PO DAILY 10 days PRN 10 tabs 0RF pain M25.562 - Pain in left knee Coding Level of Care Code Est Pt Level 3 (94470) Diagnoses Acute pain of left knee M25.562 Chronicity: acute
[2023-04-29 15:26] VITALS: BP 120/70; PULSE 90; O2SAT 97; BMI 25.1
== END 2023-04-29 15:45 | disposition home or self-care (01) ==
PROVIDERS: PCP Physician Assistant; Visit Provider Physician Assistant
DX: M25.562 Pain in left knee (principal)
CPT/HCPCS: 99213

== ENCOUNTER 2023-05-22 09:38 | Outpatient (REF) | payer BC, SELFPAY ==
--- NOTE | ~2023-05-22 | XR_ITS ---
EXAMINATION: XR KNEE, LEFT CLINICAL INFORMATION: Pain. COMPARISON: None available. TECHNIQUE: AP, lateral and sunrise views of the left knee are submitted. FINDINGS: No fracture or joint effusion. Alignment is anatomic. Joint spaces are maintained. No abnormal soft tissue calcification. XR/XR knee LT 3V IMPRESSION: Normal left knee.
== END 2023-05-22 09:39 | disposition home or self-care (01) ==
LOC: HO.XRAY 09:38
PROVIDERS: PCP Physician Assistant; Visit Provider Physician Assistant
DX: M25.562 Pain in left knee (principal)
CPT/HCPCS: 73562

== ENCOUNTER 2023-06-12 07:54 | Outpatient (AMB) | payer BC, SELFPAY ==
--- NOTE | 2023-06-12 08:10 | A.OFFVIS_ITS ---
Intake Vital Signs 06/12/23 08:11 Height 5 ft 4 in Weight 146 lb BMI 25.1 BP 114/66 Intake Visit Reasons: Med Follow up Assurance Specialist Required: No Information Interpreted: non-clinical & clinical Prototype Sewer: Prototype Sewer Present (Aidyn) Allergies acetaminophen [From Midol] Allergy (Severe, Verified 06/12/23 08:15) con not breath pamabrom [From Midol] Allergy (Severe, Verified 06/12/23 08:15) con not breath Is last menstrual period known: Yes Last menstrual period: 05/12/23 Post menopausal: No HPI HPI Comments History of Present Illness Details Presenting for 3 month follow-up after Lysteda, the patient continues to have heavy menstrual cycle and is interested in it different options of treatment for her AUB/myomas. Mirena IUD was inserted and failed control of her AUB. Following workup was done 2 months ago: H&H= 11.6/36.7 TSH, prolactin, hCG, GC and chlamydia were negative. Endometrial biopsy pathology showed no evidence of hyperplasia and/or malignancy. Co testing was done was negative. Pelvic ultrasound showed the following: The uterus large measuring 12.2 x 6.1 x 5.8 cm. A regular homogeneous endometrium is identified measuring 0.5 cm. 2 new subcentimeter intramural uterine myomas in the anterior and posterior body measuring up to 0.9 cm. A 4.6 cm subserosal myoma in the fundus is unchanged in maximal diameter previously 4.6 cm. Both ovaries are of normal size and echogenicity. The right measures 3.1 x 2.4 x 2.6 cm for a volume of 9.8 m L. The left measures 1.6 x 1.6x 1.7 cm for a volume of 2.2 mL. There is trace physiologic volume simple pelvic free fluid. Additional findings should include: Prominent adnexal vessels, recommend correlation with any symptoms of pelvic venous congestion syndrome. [facility] Medical History DIANA III (cervical intraepithelial neoplasia grade III) with severe dysplasia No known health problems No known health problems Surgical History History of facial surgery Hx of appendectomy Tubal ligation status Family History Mother Arthritis Tendinitis Migraine Valvular heart disease Father Schizophrenia Heart attack, Onset Age: 55 Paternal Aunt Heart attack Paternal Grandmother Ovarian cancer Other Mental health disorder Social History Housing: House Alcohol intake: current Alcohol intake frequency: holidays/special occasions only Patient Tobacco Use Status: Former Tobacco user Quit Date: 2016 Tobacco use type: Smokeless Tobacco e-Cigarette/Vaping Use: Currently Using Second Hand Smoke Exposure: Yes service: No Current occupational status: employed 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 Cognitive needs: No Hearing needs: No Vision needs: Yes (glasses) Female Reproductive History Menstrual Age of Menarche: 15 Date of last menstrual period: 05/12/23 control method: permanent sterilization Review of Systems Const All systems reviewed & are unremarkable except as noted in HPI and below Reports as per HPI and Reports no additional complaints GI Reports no additional complaints Reports no additional complaints Physical Exam Vital Signs: Last Vital Signs BP 114/66 06/12/23 08:11 BMI result Body Mass Index 25.1 Assessment & Plan Assessment & Plan (1) Abnormal uterine bleeding (AUB): Comment: With myomas Code(s): N93.9 - Abnormal uterine and vaginal bleeding, unspecified Plan: Discussed with the patient the results of the ultrasound and the size of the myomas Discussed with the patient risk of myosarcoma and symptoms that are caused by myomas including but not limited to pelvic pain, pressure symptoms, abnormal uterine bleeding. In addition discussed with the patient options of treatment for myomas including: Serial ultrasounds periodically to follow-up on the size of the myoma while targeting the treatment against fibroids related symptoms (hormonal therapy using estrogen progesterone or progesterone only, GnRH agonist/antagonist, uterine artery embolization or endometrial ablation) versus surgical treatmen tincluding hysterectomy and or myomectomy. All pros and cons, risks and benefits of all options were discussed with the patient. The patient is not interested in future fertility has had tubal ligation and is interested in hysterectomy. Discussed with the patient the different types of hysterectomies including, vaginal, laparoscopic assisted vaginal, robotic assisted laparoscopic,& abdominal with BSO. All pros, cons, r/b of each approach were discussed the patient including evidence that morbidity is less and recovery is shorter with minimally invasive approaches to hysterectomy. Discussed with the patient the lack of availability of the robot DaVinci robot and/or minimally invasive behavioral health director specialist at [facility]. Will refer the patient to [facility] for minimally invasive hysterectomy. Instructed the patient to call our office back in case a referral appointment is not scheduled, missed or canceled so that we will assist on rescheduling another appointment, the patient verbalized understanding agreed with the plan. Coding Level of Care Code Est Pt Level 3 (69666) Diagnoses Abnormal uterine bleeding (AUB) N93.9
[2023-06-12 08:11] VITALS: BP 114/66; BMI 25.1
== END 2023-06-12 08:28 | disposition home or self-care (01) ==
PROVIDERS: PCP Physician Assistant; Visit Provider Obstetrics & Gynecology
DX: N93.9 Abnormal uterine and vaginal bleeding, unspecified (principal)
CPT/HCPCS: 99213

== ENCOUNTER → 2023-06-12 07:54 | Outpatient (BNVA) | payer BC, SELFPAY | PROVIDERS: PCP Physician Assistant; Visit Provider Obstetrics & Gynecology ==

== ENCOUNTER 2024-09-10 13:24 | Outpatient (AMB) | payer BC, SELFPAY ==
--- NOTE | 2024-09-10 13:32 | MHC.PC.OV ---
Vital Signs 09/10/24 13:37 Height 5 ft 4 in Weight 143 lb 4 oz BMI 24.6 BP 102/60 Blood Pressure Location Lt brachial Position Sitting Pulse 79 Pulse Source Pulse Oximeter Temp 97.1 F Temp Source Temporal Artery Scan Pulse Oximetry (%) 98 Oxygen Delivery Method Room Air Intake Visit Reasons: Pe and med reivew Advice Nurse Required: No Accompanied by: Self / Same As Patient Allergies acetaminophen [From Midol] Allergy (Severe, Verified 09/10/24 13:50) con not breath pamabrom [From Midol] Allergy (Severe, Verified 09/10/24 13:50) con not breath Medication List - Last Reconciled 09/10/24 by Michael Montgomery PA-C cetirizine 10 mg PO DAILY 90 days diclofenac sodium 50 mg PO DAILY PRN 10 days fluticasone propionate 50 mcg/actuation (Flonase Allergy Relief) 1 spray intranasal BID 30 days sennosides (Senna Lax) 8.6 mg PO BEDTIME PRN 30 days tranexamic acid 1,300 mg (2 x 650 mg) PO TID 5 days Tobacco use date assessed: 09/10/24 Dental Screening Dental Screen Date: 09/10/24 Did you have a dental visit in the last 12 months?: Yes Did you have a dental problem in the last 6 months where you did not have access to dental care?: No Was dental information given to patient?: Patient has dentist HPI Pe and med reivew HPI Details Patient is a 39-year-old female here today for at a routine annual physical.? Patient's past medical history significant for GERD, migraines, dysfunctional uterine bleeding. -Concerns-> She reports persistent constipation since June after eliminating dairy and sugar from her diet. Despite initial relief with chlorophyll supplements, the beneficial effect decreased, resulting in bowel movements occurring roughly every four to five days. Prior attempts to use senna caused significant pain, while docusate was ineffective. The patient reports that Trulance was effective in resolving constipation when used previously, providing regular bowel movements without pain. .. Abnormal uterine bleeding: Has underwent a hysterectomy in April of 2024. . GERD:? Her GERD symptoms have been fairly well controlled with PRN use of omeprazole and avoidance of gastric irritants. 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: had hysterectomy vaccine: UTD COVID, Needs TDap [facility] Medical History (Updated 09/10/24 @ 14:35 by Michael Montgomery PA-C) Uterine myoma DIANA III (cervical intraepithelial neoplasia grade III) with severe dysplasia No known health problems No known health problems Surgical History History of facial surgery Hx of appendectomy Tubal ligation status Family History (Updated 09/10/24 @ 13:55 by Michael Montgomery PA-C) Mother Arthritis Tendinitis Migraine Valvular heart disease Fibromyalgia Father Schizophrenia Heart attack, Onset Age: 55 Paternal Aunt Heart attack Paternal Grandmother Ovarian cancer Other Mental health disorder Social History (Updated 09/10/24 @ 13:57 by Michael Montgomery PA-C) Housing: House Alcohol intake: current Alcohol intake frequency: a few times a month Alcohol type: wine Patient Tobacco Use Status: Former Tobacco user Tobacco use type: Smokeless Tobacco e-Cigarette/Vaping Use: Currently Using Second Hand Smoke Exposure: Yes service: No Current occupational status: employed Current occupation: [employer] Cognitive needs: No Hearing needs: No Vision needs: Yes (glasses) Female Reproductive History Menstrual Age of Menarche: 15 Questionnaire PHQ-9 Over the last 2 weeks, how often have you been bothered by any of the following problems? 1. Little interest or pleasure in doing things: not at all 2. Feeling down, depressed, or hopeless: not at all 3. Trouble falling or staying asleep, or sleeping too much: not at all 4. Feeling tired or having little energy: several days 5. Poor appetite or overeating: not at all 6. Feeling bad about yourself - or that you are a failure or have let yourself or your family down: not at all 7. Trouble concentrating on things, such as reading the newspaper or watching television: not at all 8. Moving or speaking so slowly that other people could have noticed. Or the opposite - being so fidgety or restless that you have been moving around a lot more than usual: not at all 9. Thoughts that you would be better off or of hurting yourself in some way: not at all Total score: 1 Depression Screening Interpretation: Negative Depression Screening Done: Yes 10413 - PHQ-9 Billing: Yes Source: Developed by Drs. Lauro L. Maura Gardner Kurt Kroenke and colleagues, with an educational karin from [employer]. Thrive Questionnaire Date Thrive assessed: 09/10/24 I am a: Patient What is your living situation today?: I have a steady place to live Within the past 12 months, did the food you bought not last and you didn't have the money to get more?: Never true Within the past 12 months, did you worry whether your food would run out before you got money to buy more?: Never true Do you have trouble paying for medicines?: No Do you have trouble getting transportation to medical appointments?: No Do you have trouble paying your heating and electricity bill?: No Do you have trouble taking care of your child, family member or friend?: No Do you have trouble with day-to-day activities such as bathing, preparing meals, shopping, managing finances, etc.?: No Are you currently unemployed and looking for a job?: No Are you interested in more education?: No Please select the resources that you would like help with: None Currently or been in a relationship where the following occur: Controlled Emotionally and No concerns reported THRIVE Score: 1 AUDIT C Alcohol Use Questionnaire (AUDIT-C) 1. How often do you have a drink containing alcohol?: 2-4 times a month 2. How many drinks containing alcohol do you have on a typical day when you are drinking?: 3 or 4 3. How often do you have six or more drinks on one occasion?: Never Total Score: 3 AARON-7 AMB Questionnaire AARON-7 Date AARON - 7 assessed: 09/10/24 Feeling nervous, anxious, or on edge: 0 = Not at all Not being able to stop or control worryin = Not at all Worrying too much about different things: 1 = Several days Trouble relaxin = Several days Being so restless that it is hard to sit still: 0 = Not at all Becoming easily annoyed or irritable: 0 = Not at all Feeling afraid as if something awful might happen: 0 = Not at all Total AARON-7 score (0-4 normal; 5-9 mild; 10-14 moderate; 15-21 severe): 2 Source: Developed by Maura Fletcher Kurt Kroenke and colleagues, with an educational karin from [employer]. AARON-7 Assessment Billing AARON-7 Assessment Tool: AARON-7 Assessment 57845 Review of Systems Const Denies body aches, Denies chills, Denies excessive sweating, Denies fatigue, Denies fever(s) and Denies headache(s) Eyes Denies blurry vision ENT Denies dysphagia, Denies vertigo, Denies dizziness, Denies headache(s), Denies hearing loss and Denies tinnitus Card Denies chest pain, Denies chest pain with activity, Denies syncope, Denies irregular heart rhythm and Denies dyspnea Resp Denies chest congestion, Denies cough, Denies hemoptysis, Denies dyspnea and Denies wheezing GI Denies abdominal pain, Denies melena, Denies hematochezia, Denies coffee ground emesis, Reports constipation, Denies dysphagia, Denies diarrhea, Denies nausea and Denies vomiting Denies urinary frequency, Denies dysuria, Denies urinary hesitancy and Denies urinary urgency Musc Denies arthralgias, Denies limited range of motion, Denies muscle cramps and Denies muscle weakness Skin/Breast Denies rash and Denies skin ulcer Neuro Denies Abnormal speech present, Denies confusion, Denies vertigo, Denies dizziness, Denies syncope, Denies headache(s), Denies memory loss and Denies seizure-like activity Psych Denies anxiety, Denies confusion, Denies depression, Denies memory loss, Denies panic attacks and Denies paranoia Endo Denies excessive sweating, Denies fatigue, Denies flushing, Denies polydipsia and Denies polyuria Aller/Immun Denies wheezing Physical exam (Primary Care) Vital Signs: Last Vital Signs Temp 97.1 F 09/10/24 13:37 Pulse 79 09/10/24 13:37 BP 102/60 09/10/24 13:37 Pulse Ox 98 09/10/24 13:37 Oxygen Delivery Method Room Air 09/10/24 13:37 BMI result Body Mass Index 24.6 Tobacco/Smoking Status: Tobacco use Status Tobacco use date assessed 09/10/24 09/10/24 13:45 Patient Tobacco Use Status Former Tobacco user 09/10/24 13:32 Tobacco use type Smokeless Tobacco 09/10/24 13:32 e-Cigarette/Vaping Use Currently Using 09/10/24 13:32 PHQ-9: PHQ-9 Score PHQ-9: Total score 1 09/10/24 13:45 Depression Screening Interpretation: Negative Thrive Assessment: Date of Thrive Assessment Date Thrive assessed 09/10/24 09/10/24 13:45 Currently or been in a relationship where the following occur: Controlled Emotionally and No concerns reported Const General: cooperative, comfortable, no acute distress, alert and awake; No confusion Orientation/consciousness: oriented to person, oriented to place, patient oriented x3 and No confusion HENMT Head: Yes normocephalic Ears: external ears normal and TM's normal bilaterally Face and sinus: No sinus tenderness Mouth: Normal oral and palatal mucosa present and tongue normal Teeth and gingiva: dentition normal and gingiva normal Throat: Yes posterior oropharynx normal, Yes tonsils normal and Yes uvula midline Eyes Conjunctivae: conjunctivae normal Sclerae: sclerae normal Pupils: Equal, round and reactive pupils present EOM: EOMs intact bilaterally Direct Ophthalmoscopy: No no photophobia Neck Neck: Yes no lymphadenopathy, No tender and Yes no JVD Thyroid: Thyroid normal Carotids: no bruits Chest Chest palpation & inspection: no tenderness Resp Effort & Inspection: normal respiratory effort, no audible wheezes, not labored and no stridor Auscultation: no crackles, no rales, no rhonchi and no wheezes Cardio Jugular venous distension: no JVD Rate: regular rate, not bradycardic and not tachycardic Rhythm: regular rhythm Bruits: no carotid bruits Peripheral pulses: Peripheral pulses 2+ throughout GI Inspection: Yes normal to inspection, No abdominal wall ecchymosis and No visible herniation Palpation (GI): Soft to palpation, nontender, no guarding, not rigid and No hepatosplenomegaly present Auscultation: normoactive bowel sounds General: Yes no CVA tenderness Back/Spine/Pelvis Back: no CVA tenderness and No back tenderness Cervical Spine: cervical ROM normal Thoracic/Lumbar Spine: thoracic and lumbar spine normal to inspection, straight leg raise negative bilaterally, No thoraco-lumbar ROM limited and No lumbar spinal tenderness Skin Lesions: no lesions Rashes: no rashes Wounds: no wounds Neuro General: oriented to person, oriented to place, patient oriented x3, CN's II-XI intact bilaterally and No confusion Cranial nerves: Yes Equal, round and reactive pupils present and Yes Normal accommodation reflex present Cognition (Neuro): normal cognition Speech: No Abnormal speech present Gait exam (Neuro): Normal gait present Motor exam (neuro): 5/5 motor strength present throughout Extrem Right upper extremity: full ROM; no cyanosis Left upper extremity: full ROM; no cyanosis Right lower extremity: no edema Left lower extremity: no edema Psych Appearance: grossly normal Mental Status: mental status grossly normal Affect: normal affect Attitude: cooperative Thought process: Normal thought process present Coding Level of Care Code Est Pt Prev Care 18-39y(90478) Diagnoses Annual physical exam Z00.00 Irritable bowel syndrome with constipation K58.1 Additional Codes AARON-7 Assessment Billing - AARON-7 Assessment Tool: AARON-7 Assessment 29368 ([id number]) PHQ-9 - 92810 - PHQ-9 Billing: Yes ([id number]) Assessment & Plan Assessment & Plan (1) Annual physical exam: Code(s): Z00.00 - Encounter for general adult medical examination without abnormal findings Category: Medical Plan: As per HPI (2) Irritable bowel syndrome with constipation: Code(s): K58.1 - Irritable bowel syndrome with constipation Category: Medical Plan: Prescription issued for Trulance, as it has been effective in the past for the patient's chronic constipation without causing pain. Use of fiber supplements suggested to bolster bowel regularity and hydration, monitored for subsequent follow-up. Orders: Orders Comprehensive [place]. Panel Fast Today Z13.1 - Encounter for screening for diabetes mellitus Complete Blood Count no Diff Today Z13.1 - Encounter for screening for diabetes mellitus Magnesium Today K59.04 - Chronic idiopathic constipation Medications: New plecanatide (Trulance) 3 mg PO DAILY 30 days 30 tabs 1RF K58.1 - Irritable bowel syndrome with constipation Refilled cetirizine 10 mg PO DAILY 90 days 90 tabs 1RF J30.1 - Allergic rhinitis due to pollen Discontinued sennosides (Senna Lax) Discontinued Reason: Doctor's Order 8.6 mg PO BEDTIME 30 days PRN 30 tabs 3RF constipation K59.04 - Chronic idiopathic constipation
[2024-09-10 13:37] VITALS: BP 102/60; PULSE 79; TEMP 36.2; O2SAT 98; BMI 24.6
== END 2024-09-10 14:11 | disposition home or self-care (01) ==
LOC: HO.HMCH 13:25
PROVIDERS: PCP Physician Assistant; Visit Provider Physician Assistant
DX: Z00.00 Encounter for general adult medical examination without abnormal findings (principal); K58.1 Irritable bowel syndrome with constipation

== ENCOUNTER → 2024-09-10 13:24 | Outpatient (BNVA) | payer BC, SELFPAY | PROVIDERS: PCP Physician Assistant; Visit Provider Physician Assistant | DX: Z00.00 Encounter for general adult medical examination without abnormal findings (principal); K58.1 Irritable bowel syndrome with constipation | CPT/HCPCS: 96127 ==

== ENCOUNTER 2024-09-25 07:45 | Outpatient (REF) | payer BC, SELFPAY ==
[2024-09-25 08:15] LABS: Hematocrit 39.3 % (37.0-47.0); Hemoglobin 12.5 g/dl (12.0-16.0); Mean Corpuscular HGB Conc 31.8 g/dl (31.0-35.0); Mean Corpuscular Hemoglobin 27.9 pg (27.0-33.0); Mean Corpuscular Volume 87.7 fL (80.0-98.0); Mean Platelet Volume 9.2 fL (9.4-12.3); Platelet Count 392 X10*3/uL (160-400); Red Blood Count 4.48 X10*6/uL (4.20-5.50); White Blood Count 7.1 X10*3/uL (4.8-10.8)
[2024-09-25 08:37] LABS: Alanine Aminotransferase 12 U/L (0-31); Albumin Level 4.1 g/dL (3.5-5.0); Alkaline Phosphatase 72 U/L (39-117); Anion Gap 10 (12-20); Aspartate Amino Transferase 21 U/L (5-31); Bilirubin Total 0.5 mg/dL (0.0-1.0); Blood Urea Nitrogen 12 mg/dL (9-16); Calcium 9.2 mg/dL (8.4-10.2); Carbon Dioxide 24 mmol/L (22-29); Chloride 111 mmol/L (96-108); Estimated Glomerular Filt Rate > 60; Glucose Fasting 104 mg/dL (60-99); Magnesium 2.2 mg/dL (1.6-2.6); Potassium 4.2 mmol/L (3.3-5.1); Sodium 141 mmol/L (135-145); Total Protein 7.1 g/dL (6.5-8.0)
== END 2024-09-25 07:46 | disposition home or self-care (01) ==
LOC: HO.LAB 07:45
PROVIDERS: PCP Physician Assistant; Visit Provider Physician Assistant
DX: K59.04 Chronic idiopathic constipation (principal); Z13.1 Encounter for screening for diabetes mellitus
CPT/HCPCS: 36415; 80053; 83735; 85027

== ENCOUNTER 2024-10-01 06:02 | Outpatient (REF) | payer BC, SELFPAY ==
[2024-10-01 08:24] LABS: Appearance Urine Clear; Color Urine Dark Yellow; Glucose Urine UA Negative (Negative); Leukocyte Esterase Urine Negative (Negative); Nitrite Urine Negative (Negative); Specific Gravity - Urine >= 1.030 (1.005-1.025); Urine Blood Negative (Negative); Urine Ketones Trace mg/dL (Negative); Urine Protein Trace mg/dL (Neg-Trace)
== END 2024-10-01 06:03 | disposition home or self-care (01) ==
LOC: HO.LAB 06:02
PROVIDERS: PCP Physician Assistant; Visit Provider Physician Assistant
DX: R35.0 Frequency of micturition (principal)
CPT/HCPCS: 81003

== ENCOUNTER 2024-10-28 18:28 | Emergency (ER) | payer BC, SELFPAY ==
--- NOTE | ~2024-10-28 | XR_ITS ---
CLINICAL HISTORY: cough sob 2 view chest x-ray Comparison: None Findings: The lungs are clear. Normal size heart. No acute fracture. IMPRESSION: 1. No acute findings. This document has been electronically signed by: Skyler Carney MD on 10/28/2024 19:12:40
[2024-10-28 18:34] VITALS: BP 106/67; PULSE 97; RESP 18; TEMP 37.4; O2SAT 97; BMI 24.1
--- NOTE | 2024-10-28 18:34 | ED_ITS ---
HPI - URI/Sore Throat General Chief Complaint: Upper Respiratory Symptoms Stated Complaint: flu like symptoms Time Seen by Provider: 10/28/24 20:08 Source: patient and family (male friend corroborates history ) Mode of arrival: ambulatory Limitations: no limitations History of Present Illness ED Provider: Ann Marie Jc PA-C HPI Narrative: 39 yo F w/no sig pmhx presenting to the ED c/o URI sx w/sore throat, fever (Tmax 101), myalgias, ear pain, cough, SOB, CP when coughing x3 days. Traveled to [place] 2wks ago, denies sick contacts. Denies nausea, vomiting, headache, visual changes, diarrhea MD elicited complaint: fever, cough and sore throat Onset (ago): day(s) Consistency: constant Severity: mild Able to tolerate fluids by mouth: Yes Exacerbating factors: nothing Relieving factors: nothing Context: recent travel Related Data Previous Rx's ?Medication ?Instructions ?Recorded fluticasone propionate 50 1 spray intranasal BID 30 days #16 02/11/23 mcg/actuation nasal grams spray,suspension (Flonase Allergy Relief) tranexamic acid 650 mg tablet 1,300 mg (2 x 650 mg) PO TID 5 03/11/23 days #30 tabs diclofenac sodium 50 mg 50 mg PO DAILY PRN pain 10 days 04/29/23 tablet,delayed release #10 tabs cetirizine 10 mg tablet 10 mg PO DAILY 90 days #90 tabs 09/10/24 plecanatide 3 mg tablet (Trulance) 3 mg PO DAILY 30 days #30 tabs 09/10/24 nitrofurantoin 100 mg PO Q12H 5 days #10 caps 10/01/24 monohydrate/macrocrystals 100 mg capsule (Macrobid) oseltamivir 75 mg capsule (Tamiflu) 75 mg PO Q12H 5 days #10 caps 10/28/24 Allergies Allergy/AdvReac Type Severity Reaction Status Date / Time pamabrom [From [facility]] Allergy Severe con not Verified 10/28/24 18:37 breath Review of Systems Review of Systems: Yes all other systems are reviewed and are negative Constitutional: Constitutional: Reports as per [facility] Past Medical History Attestation statement: The following information was validated with the patient. Source: old records reviewed Medical History Uterine myoma DIANA III (cervical intraepithelial neoplasia grade III) with severe dysplasia No known health problems No known health problems Surgical History History of facial surgery Hx of appendectomy Tubal ligation status Family History Family History Mother Arthritis Tendinitis Migraine Valvular heart disease Fibromyalgia Father Schizophrenia Heart attack, Onset Age: 55 Paternal Aunt Heart attack Paternal Grandmother Ovarian cancer Other Mental health disorder Social History Social History Housing: House Alcohol intake: current Alcohol intake frequency: a few times a month Alcohol type: wine Patient Tobacco Use Status: Former Tobacco user Tobacco use type: Smokeless Tobacco e-Cigarette/Vaping Use: Currently Using Second Hand Smoke Exposure: Yes Advance Directives: No Advance Directives Information Provided: Yes service: No Current occupational status: employed Current occupation: [employer] Cognitive needs: No Hearing needs: No Vision needs: Yes (glasses) Physical Exam Vital Signs: Vital Signs: Last Vital Signs Temp 99.4 F 10/28/24 20:46 Pulse 97 10/28/24 20:46 Resp 18 10/28/24 20:46 BP 106/67 10/28/24 20:46 Pulse Ox 97 10/28/24 20:46 O2 Del Method Room Air 10/28/24 20:46 BMI result Body Mass Index 24.1 Const: General: cooperative, healthy appearing and no acute distress Orientation/consciousness: patient oriented x3 Limitations: no limitations HEENT: Head: Yes normal to inspection and Yes atraumatic Ears: hearing grossly normal bilaterally General nose exam: Normal external nose present Face and sinus: Yes normal facial exam Mouth: Normal oral and palatal mucosa present Throat: Yes uvula midline and Yes posterior oropharynx abnormal (erythematous ) Eyes: General: appearance normal, both eyes and all related structures EOM: EOMs intact bilaterally Neck: Neck: Yes normal visual inspection and Yes no meningeal signs Resp: Effort & Inspection: normal respiratory effort and no respiratory distress Auscultation: clear to auscultation bilaterally, no rales, no rhonchi and no wheezes Cardio: Rate: regular rate Heart sounds: S1 normal heart sound present and S2 normal heart sound present Skin: Rashes: no rashes Wounds: no wounds Neuro: General: patient oriented x3, tone normal and no meningeal signs Cranial nerves: Yes CN's II-XII intact bilaterally Gait exam (Neuro): Normal gait present Extrem: General: Yes normal to inspection Course Course Course Narrative: This is a Rapid Medical Exam performed in triage by Ann Marie Jc PA-C. Full HPI, ROS and PE to be performed by primary ED provider. 39 yo F presenting to the ED c/o URI sx w/sore throat, fever (Tmax 101), mylgias, ear pain, cough, SOB, CP when coughing. Traveled to [place] 2w[place] ago, denies sick contacts PE: loss of voice, +posterior oropharynx erythematous, no swelling or exudates, uvula midline, lungs CTA Plan: SARs, Rapid strep, CXR -Viral swabs positive for Flu A. > discussed Tamiflu with patient which she would like -Chest X-ray negative, strep swab negative Results discussed with patient including worrisome signs and symptoms and strict return precautions, and when to return to the emergency department. They verbalized understanding and feel safe for discharge at this time. Medical Decision Making Medical Decision Making MDM Narrative: 39 yo F presenting to the ED c/o URI sx w/sore throat, fever (Tmax 101), mylgias, ear pain, cough, SOB, CP when coughing x Saturday (3 days). On physical exam oropharynx is slightly erythematous with uvula midline and no edema. no MICRO LAB ANALYST, no retropharangeal abscess. Lungs CTA. Concern for viral illness vs pneumonia, vs bronchitis, pharyngitis, strep infection. Low suspicion for ACS, PE, mastoiditis Plan- Viral swabs, rapid strep, CXR Please refer to course for remaining clinical decision making, interpretation of labs/imaging results, and discussions with consultants and/or family members. Differential Diagnosis Differential Diagnoses: The differential diagnosis associated with the presentation includes As above Admission/Observation Consideration of admission/observation: Escalation of care including admission/observation considered Lab Data [facility] Lab Attestation statement: I reviewed the patient's lab results. Labs: Lab Results 10/28/24 Range/Units 18:57 Influenza Type A (PCR) POSITIVE A (Negative) Influenza Type B (PCR) NEGATIVE (Negative) RSV RNA Qual (PCR) NEGATIVE (Negative) SARS-CoV-2 RNA (RT-PCR) NEGATIVE (Negative) S. pyogenes GrpA CHELLE Negative (Negative) Independent Interpretation I performed an independent interpretation of an: Plain X-Ray Radiology Impression Discussion of test interpretation with radiology: I have reviewed the radiologist's reading. External Record Review External record reviewed: Inpatient record, Office record, Outpatient record, Prior outpatient labs, Prior outpatient radiology, Primary care record and Outside ED record Tests considered The following testing was considered but not selected: As above Prescription Management I considered prescription management with: Pain Medication, Antiviral and Antibiotic Chronic Conditions Patient?s care impacted by: Other Social Determinants Patient?s care significantly limited by Social Determinants of Health including: Other Social Determinant of Health Discharge Plan Discharge Clinical Impression: Influenza A Patient Disposition: Home, Self-Care Instructions: Influenza (ED) Additional Instructions: You have Flu A Tamiflu for treatment but does come with side effects including GI upset, nausea, vomiting, diarrhea. No antibiotics are indicated at this time Make sure you are staying hydrated. Drink plenty of fluids. Rest Alternate Tylenol and Motrin at home as needed for body aches and fever Follow-up with your doctor. If symptoms persist or worsen return to the emergency department *If you are a child & not tolerating liquid or urinating for more than 6 hours, or fevers are uncontrolled with medications at home, return to the emergency department* Prescriptions: New oseltamivir [Tamiflu] 75 mg capsule 75 mg PO Q12H 5 Days Qty: 10 0RF No Action fluticasone propionate [Flonase Allergy Relief] 50 mcg/actuation spray,suspension 1 spray intranasal BID 30 Days Qty: 16 3RF Rx Instructions: administer into each nostril nitrofurantoin monohyd/m-cryst [Macrobid] 100 mg capsule 100 mg PO Q12H 5 Days Qty: 10 0RF Rx Instructions: must administer with a meal/food diclofenac sodium 50 mg tablet,delayed release (DR/EC) 50 mg PO DAILY PRN (Reason: pain) 10 Days Qty: 10 0RF Trulance 3 mg tablet 3 mg PO DAILY 30 Days Qty: 30 1RF cetirizine 10 mg tablet 10 mg PO DAILY 90 Days Qty: 90 1RF tranexamic acid 650 mg tablet 1,300 mg PO TID 5 Days Qty: 30 2RF Referrals: Michael Montgomery PA-C [Primary Care Provider] - 1 week Stand Alone Forms: Work/School Release Interventions: ED Discharge Assessment Last Done: 10/28/24 20:46 Discharge Date/Time: 10/28/24 20:47 Print Language: Georgian
[2024-10-28 19:31] LABS: IDNOW Serial# 55D5AD1C; Strep A Nucleic Acid Negative (Negative)
[2024-10-28 20:02] LABS: Influenza A PCR POSITIVE (Negative); Influenza B PCR NEGATIVE (Negative); Resp Syncy Virus RNA Qual PCR NEGATIVE (Negative); SARS COV2 PCR INHOUSE NEGATIVE (Negative)
[2024-10-28 20:46] VITALS: BP 106/67; PULSE 97; RESP 18; TEMP 37.4; O2SAT 97
== END 2024-10-28 20:47 | disposition home or self-care (01) ==
PROVIDERS: Physician Assistant; Emergency Provider Emergency Medicine; PCP Physician Assistant
DX: J10.1 Influenza due to other identified influenza virus with other respiratory manifestations (principal); R50.9 Fever, unspecified; M79.10 Myalgia, unspecified site; R06.02 Shortness of breath; R05.9 Cough, unspecified; R07.89 Other chest pain; Z03.818 Encounter for observation for suspected exposure to other biological agents ruled out; Z79.899 Other long term (current) drug therapy; Z87.891 Personal history of nicotine dependence
CPT/HCPCS: 0241U; 71046; 87651; 99282; 99283

== ENCOUNTER → 2024-10-28 18:38 | Outpatient (BNV) | payer BC, SELFPAY | PROVIDERS: PCP Physician Assistant; Visit Provider Radiology Diagnostic Radiology | DX: R05.9 Cough, unspecified (principal); R06.02 Shortness of breath | CPT/HCPCS: 71046 ==

== ENCOUNTER 2025-02-16 16:02 | Outpatient (REF) | payer BC, SELFPAY ==
--- OUTSIDE RECORDS SUMMARY | 2025-02-16 16:46 | XMS_ITS | Clinical Summary ---
Author Organization [facility] Address [address] [address] Phone Care Team Providers Care Ceramic Sprayer Name Role Phone Unknown, Unknown MD Primary Care Provider Jose F mendoza Social History Tobacco Use Types Packs/Day Years Used Date Smoking Tobacco: Never Assessed Education Answer Date Recorded Are you interested in more education? Not on jose e 10/19/2022 Are you concerned about learning? Not on file 10/19/2022 No 10/19/2022 No 10/19/2022 Digital Access Answer Date Recorded No 11/17/2022 No 11/17/2022 No 11/17/2022 Reliable internet access at home? Not on file 11/17/2022 Device with a working camera? Not on file Comments Unknown Sex and Gender Information Value Date Recorded Sex Assigned at Not on file Legal Sex Female 11:19 AM EST Gender Identity Not on file Sexual Orientation Not on file Plan of Treatment Health Maintenance Due Date Last Done Comments Adult Td,Tdap Booster 1987 DEPRESSION SCREENING 1999 SMOKING Hx and SMOKELESS TOB ACCO SCREENING 2000 HEPATITIS C SCREENING 2005 HIV ONE-TIME SCREENING (18-6 5 YEARS) 2005 PAP SMEAR 2008 COVID-19 VACCINE (2023-2 5 season) 2024 HEPATITIS A VACCINES Aged Out No long er eligible based on patient's age to complete this topic HIB VACCINES Aged Out No longer eligi ble based on patient's age to complete this topic MENINGOCOCCAL VACCINES (ACWY) Aged Out No longer eligible based on patient's age to complete this topic MENINGOCOCCAL VACCINES (B) Aged Out N o longer eligible based on patient's age to complete this topic PNEUMOCOCCAL VACCINES (0-49 years) Aged Out No longer eligible based on patient's age to complete this topic Medical Devices Not on file Insurance POS POS POS POS POS POS POS POS POS Care Teams Ceramic Sprayer Relationship Specialty Start Date End Date Unknown, Unknown, MD PCP - General 09/03/20 Additional Source Comments The information contained in this document represents components of the legal health record. It is not the complete legal health record.[facility]
[2025-02-16 17:45] LABS: Appearance Urine Clear; Glucose Urine UA Negative (Negative); PH 6.0 (5.0-9.0); Specific Gravity - Urine 1.020 (1.005-1.025); UMIC TRIGGER UA YES
== END 2025-02-16 16:03 | disposition home or self-care (01) ==
LOC: HO.LAB 16:02
PROVIDERS: PCP Physician Assistant; Visit Provider Physician Assistant
DX: R39.9 Unspecified symptoms and signs involving the genitourinary system (principal)
CPT/HCPCS: 81001

== ENCOUNTER 2025-02-18 11:22 | Outpatient (AMB) | payer BC, SELFPAY ==
--- NOTE | 2025-02-18 12:06 | MHC.OFFWIV ---
Intake Vital Signs 02/18/25 12:09 Height 5 ft 4 in Weight 142 lb BMI 24.4 BP 102/60 Blood Pressure Location Lt brachial Position Sitting Pulse 77 Pulse Source Pulse Oximeter Temp 98.1 F Temp Source Oral Pulse Oximetry (%) 99 Oxygen Delivery Method Room Air Intake Visit Reasons: EP UTI? Kidney pain Intake Note: pt presents with concern for UTI, c/o discomfot and bleeding when urinating,right flank pain Patient Tobacco Use Status: Former Tobacco user Allergies pamabrom (From [facility]) Allergy (Severe, Verified 02/18/25 12:12) con not breath Do you need a note to return to daycare/school/sports/work: No HPI HPI Comments History of Present Illness Details 39 y/o Female patient who presents to the walk in clinic with c/o Urinary symptoms since Saturday. Reports Dysuria, Frequency, Urgency and Hematuria. Symptoms are associated with Lower back pain. She has been taking AZO with no relief. Denies Vaginal discharge. Denies Fevers, chills, nausea or vomiting. REPLACED BY [facility] Medical History Uterine myoma DIANA III (cervical intraepithelial neoplasia grade III) with severe dysplasia No known health problems No known health problems Surgical History History of facial surgery Hx of appendectomy Tubal ligation status Family History Mother Arthritis Tendinitis Migraine Valvular heart disease Fibromyalgia Father Schizophrenia Heart attack, Onset Age: 55 Paternal Aunt Heart attack Paternal Grandmother Ovarian cancer Other Mental health disorder Social History Housing: House Alcohol intake: current Alcohol intake frequency: a few times a month Alcohol type: wine Patient Tobacco Use Status: Former Tobacco user Tobacco use type: Smokeless Tobacco e-Cigarette/Vaping Use: Currently Using Second Hand Smoke Exposure: Yes service: No Current occupational status: employed Current occupation: [employer] Cognitive needs: No Hearing needs: No Vision needs: Yes (glasses) Female Reproductive History Menstrual Age of Menarche: 15 Review of Systems Const All systems reviewed & are unremarkable except as noted in HPI and below Physical Exam Vital Signs: Last Vital Signs Temp 98.1 F 02/18/25 12:09 Pulse 77 02/18/25 12:09 BP 102/60 02/18/25 12:09 Pulse Ox 99 02/18/25 12:09 Oxygen Delivery Method Room Air 02/18/25 12:09 BMI result Body Mass Index 24.4 Const General: no acute distress Nutritional Appearance: well nourished Orientation/consciousness: patient oriented x3 Resp Effort & Inspection: normal respiratory effort Cardio Rate: regular rate General: Yes no CVA tenderness Back/Spine/Pelvis Back: no CVA tenderness Neuro General: patient oriented x3, gait normal and moves all extremities Assessment & Plan Assessment & Plan (1) Urinary tract infection symptoms: Code(s): R39.9 - Unspecified symptoms and signs involving the genitourinary system Plan: Urinalysis positive for RADHA, and blood. Ordered C&S Ordered Cefuroxime for 5 days. Ibuprofen for pain relief. Orders: Orders UA CC w/rflx Micro + Cult Today R39.9 - Unspecified symptoms and signs involving the genitourinary system Medications: New cefuroxime axetil 500 mg PO BID 10 tabs 0RF 5 days N30.90 - Cystitis, unspecified without hematuria Coding Level of Care Code Est Pt Level 4 (29195) Diagnoses Urinary tract infection symptoms R39.9 Time Spent (min) 20
[2025-02-18 12:09] VITALS: BP 102/60; PULSE 77; TEMP 36.7; O2SAT 99; BMI 24.4
--- OUTSIDE RECORDS SUMMARY | 2025-02-18 12:40 | XMS_ITS | Clinical Summary ---
Author Organization [facility] Address [address] [address] Phone Care Team Providers Care Materials Branch Chief Name Role Phone Unknown, Unknown MD Primary [...] POS POS POS POS POS Care Teams Materials Branch Chief Relationship Specialty Start Date End Date Unknown, Unknown, MD PCP - General 09/03/20 Additional Source Comments The information contained in this document represents components of the legal health record. It is not the complete legal health record.[facility]
== END 2025-02-18 12:28 | disposition home or self-care (01) ==
PROVIDERS: PCP Physician Assistant; Visit Provider Nurse Practitioner Family
DX: R39.9 Unspecified symptoms and signs involving the genitourinary system (principal)

== ENCOUNTER 2025-02-18 11:22 | Outpatient (REF) | payer BC, SELFPAY ==
[2025-02-18 16:37] LABS: Appearance Urine Clear; Glucose Urine UA Negative (Negative); PH 6.5 (5.0-9.0); Specific Gravity - Urine 1.015 (1.005-1.025); UMIC TRIGGER UACC YES
[2025-02-18 16:43] LABS: UACC Culture Trigger YES
== END 2025-02-18 11:23 | disposition home or self-care (01) ==
LOC: HO.LAB 11:22
PROVIDERS: PCP Physician Assistant; Visit Provider Nurse Practitioner Family
DX: N30.90 Cystitis, unspecified without hematuria (principal); R39.9 Unspecified symptoms and signs involving the genitourinary system
CPT/HCPCS: 81001; 87086; 87088; 87186